=== PATIENT | female | born 1995 | race African-American/Black ===

== ENCOUNTER 2017-02-27 12:10 | Inpatient (IN) ==
[2017-02-27] MEDS ORDERED: NS 1,000 ML IV ONE ×2 (12:16→14:28)
[2017-02-27] MEDS ORDERED: DILAUDID IV ONE ×2 (12:16→14:25)
[2017-02-27] MEDS ORDERED: ZOFRAN IV ONE (12:16)
[2017-02-27] MEDS ORDERED: DILAUDID ONE (13:06)
--- NOTE | 2017-02-27 13:36 | PROVIDER DOCUMENTATION ---
This chart was entered by Macie Love Scribe, acting as scribe for Nigel Culp PA. HPI-General Adult <Sonny CotoGaby - Last Filed: 02/27/17 14:30> - General Source: patient - History of Present Illness -Gen Adult Nature of Presenting Problems: Pt is a 21 y/o F presents to the ED with back pain and chest pain. Pt states she has sickle cell disease. Pt states pain is like prior episodes. Pt states having a technical consultant in [place]. Pt states pain started 30 minutes ago. Location of Pain/Injury: reports: chest, back Pain Radiation: reports: no radiation Quality of Pain: reports: aching Severity: reports: mild Onset/Duration: reports: 1/2 hour ago Timing: reports: still present Context/Activities at Onset: reports: light activity Modifying Factors: improves with: nothing Associated Symptoms: reports: denies symptoms Similar Symptoms Previously?: Yes Recently seen or treated by another doctor?: No - Sickle Cell Pain Related Context Sickle Cell Pain Location: reports: chest, back Is this pain typical of prior episodes of crisis?: Yes <Nigel Culp - Last Filed: 02/27/17 17:20> - General Chief Complaint: Sickle Cell Crisis Stated Complaint: SICKLE CELL PAIN Time Seen by Provider: 02/27/17 12:15 Allergies/Adverse Reactions: Patient Allergies Allergy/AdvReac Type Severity Reaction Status Date / Time No Known Allergies Allergy Verified 02/27/17 13:22 Home Medications: Home Medication List Medication Instructions Recorded Confirmed Last Taken Type Cyanocobalamin [Cyanocobalamin] 1 dose IM DIRECTED 02/27/17 02/27/17 06:00 History 1 DOSE Fluticasone Propionate 1 dose TOP DIRECTED 02/27/17 02/27/17 02/27/17 06:00 History [Fluticasone Propionate] 1 DOSE Folic Acid [Folic Acid] 1 mg PO DAILY 02/27/17 02/27/17 02/27/17 06:00 History 1 MG Hydrocodone/Acetaminophen [[place] 1 dose PO BID 02/27/17 02/27/17 02/27/17 06:00 History 10-325 Tablet] 1 DOSE Hydroxyurea [Hydrea] 500 mg PO DAILY 02/27/17 02/27/17 02/27/17 06:00 History 500 MG Ketorolac Tromethamine [Ketorolac 10 mg PO DAILY 02/27/17 02/27/17 02/27/17 06: 00 History Tromethamine] 10 MG Review of Systems - Adult - REVIEW OF SYSTEMS - ADULT Constitutional: reports: no symptoms reported. denies: chills, fever Eyes: reports: no symptoms reported. denies: discharge, dry eyes Ears, Nose, Mouth & Throat: reports: no symptoms reported. denies: ear discharge, ear pain Cardiovascular: reports: chest pain. denies: heart murmur, irregular heart rate Respiratory: reports: no symptoms reported. denies: chronic cough, cough Gastrointestinal: reports: no symptoms reported. denies: abdominal pain, hematemesis Genitourinary: reports: no symptoms reported. denies: dysuria, discharge Musculoskeletal: reports: back pain. denies: joint pain, neck pain Integumentary: reports: no symptoms reported. denies: hives, hair loss Neurological: reports: no symptoms reported. denies: ataxia, dizziness/vertigo Psychiatric: reports: no symptoms reported. denies: anxiety, anti-depressant use Endocrine: reports: no symptoms reported Hematologic/Lymphatic: reports: no symptoms reported Allergic/Immunologic: reports: no symptoms reported All Other Systems: Reviewed and Negative <Nigel Culp - Last Filed: 02/27/17 17:20> Past History - Adult - PAST MEDICAL HISTORY-ADULT Review of Records: reports: Nursing Assessment Review, Medications Reviewed, Social history reviewed & non-contributory. Major Childhood Illnesses: reports: denies history Cardiovascular: reports: denies history Respiratory: reports: denies history Gastrointestinal: reports: denies history Obstetrical/Gynecological: reports: denies history Genitourinary: reports: denies history Musculoskeletal: reports: denies history Neurological: reports: denies history Psychiatric: reports: denies history Endocrine/Immune: reports: Sickle Cell disease Other Conditions: reports: denies history - PRIOR SURGERIES/PROCEDURES Surgical/Procedure History: reports: reviewed, not pertinent - IMMUNIZATION STATUS Childhood Immunizations: See Nurse Assessment Flu Vaccine: See Nurse Assessment - FAMILY HISTORY Family History: reviewed, not pertinent - SOCIAL HISTORY Smoking: denies Substance Use: denies Living Situation: family <Nigel Culp - Last Filed: 02/27/17 17:20> Physical Exam-General - PHYSICAL EXAM-ADULT Initial Vital Signs Reviewed: Yes - CONSTITUTIONAL General Appearance: appears well, alert, no apparent distress. negative: lethargic, slow to respond - EYES Eyes: PERRL/EOMI, pink conjunctivae. negative: pale conjunctivae, sunken eyes - HEAD, EARS, NOSE, MOUTH & THROAT HENMT: normocephalic/atraumatic, moist mucous membranes, normal ENT inspection. negative: angioedema, hearing deficit - NECK Neck: normal inspection. negative: lymphadenopathy, tender lateral - RESPIRATORY Respiratory: chest non-tender, lungs clear, normal breath sounds. negative: crackles, rhonchi - CARDIOVASCULAR Cardiovascular: normal peripheral pulses, regular rate, rhythm. negative: tachycardia, systolic murmur - GASTROINTESTINAL (ABDOMEN) Abdominal Exam: normal bowel sounds, non tender, soft. negative: guarding, rebound - LYMPHATIC Lymphatic: no adenopathy. negative: enlargement, streaking - MUSCULOSKELETAL Back Exam: normal inspection. negative: ecchymosis, swelling Extremity: normal range of motion, normal inspection. negative: deformity, erythema, swelling - SKIN Integumentary: normal color, normal turgor, warm/dry. negative: diaphoresis, ecchymosis, erythema, laceration(s), swelling - NEUROLOGIC Neurologic: grossly normal. negative: aphasia, facial droop - PSYCHIATRIC Psych/Mental Status: normal mood/affect, oriented x 3. negative: paranoid, tearful <Nigel Culp - Last Filed: 02/27/17 17:20> Progress - PLAN OF CARE/RESULTS Progress/Plan/Lab Results: Vital Signs - 8 hr 02/27/17 12:12 Temperature 98.3 F Pulse Rate 70 Respiratory Rate 16 Blood Pressure 92/61 O2 Sat by Pulse Oximetry 100 Bedside Urine ED: Urine Bedside Start: 02/27/17 12:16 Freq: ORDERED Status: Inactive Activity Type Activity Date Activity User E-Sign Co-Sign Detail Recorded Client Recorded Date Recorded By Edit Status 02/27/17 13:15 [id number] Active=>Inactive [id number] 02/27/17 13:15 [id number] Laboratory Results - last 24 hr 02/27/17 02/27/17 13:01 13:01 WBC 8.54 RBC 3.19 L Hgb 9.5 L Hct 27.1 L MCV 85.0 MCH 29.8 MCHC 35.1 RDW Std Deviation 17.0 H Plt Count 497 H MPV 11.3 H Immature Gran % (Auto) 0.0 Neut % (Auto) 44.2 Lymph % (Auto) 40.3 [place] % (Auto) 14.2 H Eos % (Auto) 0.6 Baso % (Auto) 0.7 Immature Gran # (Auto) 0.00 Neut # (Auto) 3.78 Lymph # (Auto) 3.44 H [place] # (Auto) 1.21 H Eos # (Auto) 0.05 Baso # (Auto) 0.06 Percent Retic 10.43 H Retic Hgb Equivalent 30.8 Sodium 138 Potassium 4.6 Chloride 99 Carbon Dioxide 26 Anion Gap 13 BUN 7 L Creatinine 0.5 Estimated GFR/1.73 m2 > 60 BUN/Creatinine Ratio 14 Glucose 76 Calculated Osmolality 272 Calcium 9.8 Total Bilirubin 2.48 H AST 45 H ALT 15 Alkaline Phosphatase 64 Total Protein 8.3 Albumin 4.8 Globulin 3.5 Albumin/Globulin Ratio 1.4 Orders Category Date Time Status ED: Urine Bedside ORDERED Care 02/27/17 12:16 Inactive Oxygen Therapy- ED Nursing DIRECTED Care 02/27/17 14:28 Active Saline Loc NOW Care 02/27/17 12:15 Active CHEST-2 VIEWS [RAD] Stat Exams 02/27/17 12:16 Ordered CBC WITH ELECTRONIC DIFF [HEME] Stat Lab 02/27/17 13:01 Completed COMPREHENSIVE METABOLIC PANEL [CHEM] Stat Lab 02/27/17 13:01 Completed TEST-URINE [PREG] Stat Lab 02/27/17 13:15 Ordered RETIC COUNT [HEME] Stat Lab 02/27/17 13:01 Completed URINALYSIS W/POSS RFLX CULT-1 [URINALYSIS] Stat Lab 02/27/17 13:12 Ordered 0.9% Sodium Chloride Inj [Ns] 1,000 ml Med 02/27/17 14:28 Active IV 125 mls/hr 0.9% Sodium Chloride Inj [Ns] 1,000 ml Med 02/27/17 12:16 Discontinued IV 999 mls/hr Hydromorphone [Dilaudid] Med 02/27/17 12:16 Discontinued 1 mg IV NOW ONE Hydromorphone [Dilaudid] Med 02/27/17 14:25 Discontinued 1 mg IV NOW ONE Hydromorphone [Dilaudid] Med 02/27/17 13:06 Discontinued 2 mg .ROUTE .STK-MED ONE Ondansetron [Zofran] Med 02/27/17 12:16 Discontinued 4 mg IV NOW ONE EKG [EKG] Stat Ther 02/27/17 12:15 Ordered Result Diagrams: 02/27/17 13:01 02/27/17 13:01 - CONSULTS/PCP/HOSPITALIST Notification #1 *Consult/PCP/Hospitalist*: [place] Time Discussed: 14:31 Consult Disposition: Will see in ED, Admit <Sonny Coto - Last Filed: 02/27/17 14:30> - PLAN OF CARE/RESULTS Progress/Plan/Lab Results: Vital Signs - 8 hr 02/27/17 12:12 Temperature 98.3 F Pulse Rate 70 Respiratory Rate 16 Blood Pressure 92/61 O2 Sat by Pulse Oximetry 100 Orders Category Date Time Status ED: Urine Bedside ORDERED Care 02/27/17 12:16 Active Saline Loc NOW Care 02/27/17 12:15 Active CHEST-2 VIEWS [RAD] Stat Exams 02/27/17 12:16 Ordered CBC WITH ELECTRONIC DIFF [HEME] Stat Lab 02/27/17 12:16 Uncollected COMPREHENSIVE METABOLIC PANEL [CHEM] Stat Lab 02/27/17 12:16 Uncollected RETIC COUNT [HEME] Stat Lab 02/27/17 12:16 Uncollected URINALYSIS W/POSS RFLX CULT-1 [URINALYSIS] Stat Lab 02/27/17 12:16 Uncollected 0.9% Sodium Chloride Inj [Ns] 1,000 ml Med 02/27/17 12:16 Active IV 999 mls/hr Hydromorphone [Dilaudid] Med 02/27/17 12:16 Discontinued 1 mg IV NOW ONE Ondansetron [Zofran] Med 02/27/17 12:16 Discontinued 4 mg IV NOW ONE EKG [EKG] Stat Ther 02/27/17 12:15 Ordered Result Diagrams: 02/27/17 13:01 02/27/17 13:01 - EKG 1 Time of EKG reading by physician:: 12:41 EKG Read and Signed by:: Tapan Johnson EKG Interpretation (*Must complete 3 of following elements*): Abnormal Rate: 69 Rhythm: normal sinus rhythm with sinus arrhythmia Comments: T wave abnormality, consider anterior ischemia - CHANGE OF SHIFT REPORT (ED Provider) Report Given and Care Transferred to:: EVITA Barlow Time of Transfer: 13:38 Items Pending: Labs <Nigel Culp - Last Filed: 02/27/17 17:20> Departure - Departure Date of Disposition Decision: 02/27/17 Time of Disposition Decision: 14:31 Certified Medical Emergency: Emergent - Critical Care Note This patient required my direct & personal management of CC.: No <Sonny Coto - Last Filed: 02/27/17 14:30> - Departure Date of Disposition Decision: 02/27/17 Time of Disposition Decision: 14:32 Certified Medical Emergency: Emergent - Critical Care Note This patient required my direct & personal management of CC.: No <Nigel Culp - Last Filed: 02/27/17 17:20> - Departure DIAGNOSIS: Sickle cell crisis Disposition: ADMITTED INPATIENT 09 Condition: Stable Attestation - Physician/ BERT Attestation Patient care was provided by Advanced Practice Provider:: Yes Advanced Practice Provider:: Nigel Culp Advanced Practice Provider documentation review:: The Mid-level provider documentation, treatment plan and medical decision making was reviewed by the physician who agrees with all treatment and medical decision making by the P. The physician spent face to face time with patient:: No Advanced Practice Provider documentation review:: Supervising physician onsite and consulted in the evaluation and care of this patient. The physician did not have a face to face encounter with the patient. - Physician/ BERT Attestation #2 Shift Change Time: 14:00 Patient care was provided by Advanced Practice Provider:: Yes Advanced Practice Provider:: Sonny Coto The physician spent face to face time with patient:: Yes (Dr. Johnson seen patient prior to admission.) Advanced Practice Provider documentation review:: Supervising physician onsite and consulted in the evaluation and care of this patient. The physician did not have a face to face encounter with the patient. <Sonny Coto - Last Filed: 02/27/17 14:30> - Physician/ BERT Attestation Patient care was provided by Advanced Practice Provider:: Yes Advanced Practice Provider documentation review:: The Mid-level provider documentation, treatment plan and medical decision making was reviewed by the physician who agrees with all treatment and medical decision making by the MLP. The physician spent face to face time with patient:: No Advanced Practice Provider documentation review:: Supervising physician onsite and consulted in the evaluation and care of this patient. The physician did not have a face to face encounter with the patient. - Physician/ BERT Attestation #2 Advanced Practice Provider documentation review:: Supervising physician onsite and consulted in the evaluation and care of this patient. The physician did not have a face to face encounter with the patient. <Nigel Culp - Last Filed: 02/27/17 17:20> This chart was documented by the indicated scribe, (Macie Love Scribe) and accurately reflects the services I performed and decisions made by Robbi garza Steven Wesley, PA, as attested by the provider's signature.
[2017-02-27 13:41] LABS: BASO% 0.7 % (0.0-0.8); EOS# 0.05 X1000 (0.0-0.7); EOS% 0.6 % (0.0-10.0); HEMATOCRIT 27.1 % (37.0-47.0); HEMOGLOBIN 9.5 g/dL (12.0-16.0); LYMPH# 3.44 X1000 (1.2-3.4); LYMPH% 40.3 % (20.5-51.1); MANUAL DIFF NEEDED? NO; MCH 29.8 PG (27-31); MCHC 35.1 g/dL (33-37); MONO# 1.21 X1000 (0.11-0.59); MONO% 14.2 % (1.7-9.3); MPV 11.3 FL (7.4-10.4); NEUT% 44.2 % (42.2-75.2); PLT 497 X1000 (130-400); RBC 3.19 XMIL (4.2-5.4); RETIC% 10.43 % (0.8-2.1); RETIC-HE 30.8 PG (28.2-36.6)
[2017-02-27 13:52] LABS: AGAP 13; ALBUMIN 4.8 g/dL (3.5-5.0); ALKALINE PHOSPHATASE 64 U/L (32-104); BUN 7 mg/dL (8-22); CALCIUM 9.8 mg/dL (8.8-10.2); CHLORIDE 99 mmol/L (98-107); COSMO 272; GOT 45 U/L (10-30); GPT 15 U/L (10-36); POTASSIUM 4.6 mmol/L (3.5-5.1); SODIUM 138 mmol/L (136-145); TCO2 26 mmol/L (25-35); TOTAL BILIRUBIN 2.48 mg/dL (0.20-1.00); TOTAL PROTEIN 8.3 g/dL (6.3-8.3)
--- NOTE | 2017-02-27 15:25 | Diag Imaging Result Doc PS360 ---
CHEST-2 VIEWS - 02/27/2017 INDICATION: sickle cell pain TECHNIQUE: COMPARISON: None FINDINGS: There is mild cardiomegaly. Pulmonary vascularity is distended. There is some ill-defined left lower lobe infiltrate. No pneumothorax or large effusion. There are characteristics central collapse deformities of the thoracic spine. IMPRESSION: 1. Left lower lobe infiltrate suggesting pneumonia. 2. Cardiomegaly and pulmonary vascular congestion. Electronically signed by Steven Burciaga 02/27/2017 3:23 PM
--- NOTE | 2017-02-27 17:19 | Diag Imaging Result Doc PS360 ---
CT THORAX W/O CONTRAST - 02/27/2017 INDICATION: ? PNA and pulmonary edema TECHNIQUE: A CT dose reduction protocol was used. COMPARISON: Chest x-ray earlier 02/27/2017. Chest CT 07/26/2015. FINDINGS: There is cardiomegaly and pulmonary vascular congestion. There are cholecystectomy clips. No mass or adenopathy. There is some trace infiltrate in both lung bases right greater than left, most notably in the right lower lobe. No pneumothorax or pleural effusion. Anemia is present. There are characteristic sickle cell changes of the bones. IMPRESSION: Cardiomegaly with pulmonary vascular congestion. Small bibasilar infiltrates suggesting mild bronchopneumonia. Right greater than left. Electronically signed by Steven Burciaga 02/27/2017 5:17 PM
[2017-02-27] MEDS: DILAUDID IV PRN ×2 (18:43→23:01)
[2017-02-27] MEDS: ZOFRAN IV PRN ×2 (18:44→21:11)
[2017-02-27] MEDS: LEVAQUIN PO SCH (21:11)
[2017-02-28 02:10] LABS: BILIRUBIN URINE NEGATIVE (NEGATIVE); BLOOD URINE NEGATIVE (NEGATIVE); COLOR YELLOW; GLUCOSE URINE NEGATIVE (NEGATIVE); LEUKOCYTES URINE NEGATIVE (NEGATIVE); NITRITE URINE NEGATIVE (NEGATIVE); PH URINE 5.5; PROTEIN URINE NEGATIVE (NEGATIVE); TURBIDITY URINE CLEAR (CLEAR); UR EPITHELIAL CELLS <10 /HPF (<10); URINE BACTERIA NEGATIVE /HPF; URINE CULTURE NEEDED? NO; URINE MICRO REVIEW NEEDED? NO; URINE RBC <10 /HPF (<10); URINE SOURCE CLEAN CATCH; URINE WBC <10 /HPF (<10); UROBILINOGEN URINE NORMAL (NORMAL)
--- NOTE | 2017-02-28 02:11 | HISTORY AND PHYSICAL ---
ONCOLOGIST: Everardo Sigala MD in [place], [place]. CHIEF COMPLAINT: Chest and back pain. HISTORY OF PRESENT ILLNESS: Mrs. Mazariegos is a 21-year-old female with a history of sickle cell disease, who presents with pain in her chest and back that began this morning. She reports pain in the midsternum and her shoulders blades. This pain, she reports , is similar to her typical sickle cell pain when she does have a crisis. She reports her last crisis was in October, at which time she was hospitalized at [facility]. She denies any shortness of breath or cough. No fever or chills. No lower extremity edema. No orthopnea. She has no exertional angina. No nausea, vomiting, or diarrhea. When she got to the ER, she had labs and diagnostics done. She is noted to be anemic with a retic count of 10.43. She also has a T- bilirubin of 2.48 and an AST of 45; otherwise, labs are unremarkable. Chest x-ray was reported as a left lower lobe infiltrate, suggesting pneumonia, cardiomegaly, and pulmonary vascular congestion. The patient is now going to be admitted for further treatment and evaluation. PAST MEDICAL HISTORY: 1. Sickle cell disease. 2. Folic acid and vitamin B12 deficiency. 3. Asthma. SURGICAL HISTORY: She has had bilateral hip replacements, cholecystectomy, and tonsillectomy. SOCIAL HISTORY: She lives in [place]. Recently moved from [place]. She is not . She has no children. She does not work. FAMILY HISTORY: Noncontributory. REVIEW OF SYSTEMS: Fourteen-point review of systems obtained and found to be negative, with the exception of the HPI. HOME MEDICATIONS: Vitamin B12 injections as directed, fluticasone as directed, folic acid 1 mg daily, [place] b.i.d., hydroxyurea 500 mg daily, ketorolac 10 mg daily. ALLERGIES: No known drug allergies. PHYSICAL EXAMINATION: VITAL SIGNS: Blood pressure is 90/55, heart rate 67, respiratory rate 16, O2 saturation 100% on room air. Temperature is 98.4 degrees. GENERAL: This is a well-developed, well-nourished, female, lying in hospital bed in no acute distress. NEUROLOGIC: She is awake, alert, oriented. Follows commands without focal deficits. HEENT: Head is atraumatic, normocephalic. Her pupils are equal, round, reactive to light. Oral mucosa is moist. Trachea is midline. No jugular venous distention. No carotid bruits. CHEST: Clear to auscultation bilaterally. Some midsternal tenderness to palpation. GASTROINTESTINAL: Soft, nondistended, nontender. Bowel sounds are positive. EXTREMITIES: No edema, clubbing, or cyanosis. Pulses palpable bilaterally. DIAGNOSTIC DATA: Chest x-ray, please see HPI. EKG shows normal sinus rhythm with nonspecific changes in the inferior and lateral leads. WBC 8.54, hemoglobin 9.5, hematocrit 27.1, platelet count 497,000. Sodium 138, potassium 4.6, chloride 99, CO2 26, anion gap 13. BUN 7, creatinine 0.5, glucose 76. Calcium 9.8, T-bilirubin 2.48. AST 45, ALT 15, alkaline phosphatase 64, protein 8.3. Free T4 is 1.16. Serum test is negative. ASSESSMENT/PLAN: 1. Vaso-occlusive sickle cell crisis: We will continue with aggressive fluid resuscitation, IV opioids, and oxygen. While the patient does not have any clear signs of pneumonia, her chest x-ray is read as pneumonia so we are going to check a chest CT without contrast. We will hold off on antibiotics for now, as she is afebrile. There is no leukocytosis or tachycardia. 2. Elevated liver functions: The patient reports that she has had a liver biopsy in the past. She has no known liver disease. We will monitor this. 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 She has had a liver biopsy in the past, although the results are unknown. We will try to get the results of that and other records from Dr. Sigala office. 3. Asthma: We will make sure she is on p.r.n. breathing treatments. Her lung sounds are clear. She is not in any respiratory distress. 4. Sickle cell anemia: Continue her B12 and folate. Check iron studies. Heme- Onc has been consulted. 5. Deep vein thrombosis prophylaxis with Lovenox. Further recommendations to follow. Patient seen and examined by me face to face, lab work, vitals signs and images were reviewed, on my physical exam she has pain to palpation at the level of her chest, she will be hydrated, she has her Hem/Onc at [place], but probably we will get one of our Nurses' Association Counselor on board , I agree with the WELD INSPECTOR' s assessment and plan, Miguel Linton MD Dictated by EVITA Smith for Miguel Junior MD cc: EVITA Smith MD John M. Waples, MD [facility]
[2017-02-28 02:16] LABS: SP GRAVITY URINE 1.009
--- NOTE | 2017-02-28 03:48 | CONSULTATION ---
DATE OF CONSULTATION: 02/27/2017 REASON FOR CONSULTATION: The patient was seen in consultation at request of Dr. Weinberg for sickle cell anemia. HISTORY OF PRESENT ILLNESS: Ms. Mazariegos is a 21-year-old woman who is well-known to Dr. Sigala for a long standing history of sickle cell anemia. She generally does not come into the hospital more than twice a year, but developed chest pain and back pain that was not controlled with [place] at home and presented to the emergency room for evaluation of the same. She describes the pain as 9/10 and not relieved by [place]. She denies any fevers, chills, cough, or shortness of breath. She does have underlying history of asthma. PAST MEDICAL HISTORY: Significant for sickle cell disease. PAST SURGICAL HISTORY: Negative. ALLERGIES: No known drug allergies. MEDICATIONS: Reviewed, per the chart. FAMILY MEDICAL HISTORY: Positive for sickle cell. Otherwise, negative. SOCIAL HISTORY: No tobacco, alcohol, or illicit drug use. REVIEW OF SYSTEMS: Positive as per history of present illness; otherwise, negative. PHYSICAL EXAMINATION: Vital Signs: Temperature 98.4, pulse 67, respiratory rate 16, blood pressure 90/55, O2 saturation 100% on room air. General: This is a thin, chronically ill- appearing, woman in no acute distress. She is unaccompanied in the hospital room at the time of consultation. Eyes: Sclerae anicteric. Cardiovascular: Regular rate and rhythm. Normal S1, S2. No murmurs, rubs, or gallops. Pulmonary: Lungs clear auscultation bilaterally without wheezes, rales, or rhonchi. Gastrointestinal: Abdomen is soft, nontender, nondistended with normoactive bowel sounds. Extremities: No clubbing, cyanosis, or edema. She has 2+ pulses x4. Neurologic: The patient is alert, oriented x3. No focal deficits. During our consultation she began to become sleepy from her recent dosing of pain medication. Otherwise, she is able to follow commands and answer questions appropriately. LABORATORY DATA: At the time of consultation white count 8.5, hemoglobin 9.5, platelet count 497,000. MCV 85.0, retic is 10.4%. Sodium 138, potassium 4.6, chloride 99, bicarb 26, BUN 7, creatinine 0.5. Glucose 76, calcium 9.8, total bilirubin 2.48. AST 45, ALT 15, alkaline phosphatase 64. CK 42, albumin 4.8. Serum test is negative. IMAGING: Chest x-ray 02/27/2017 shows a left lower lobe infiltrate suggestive of pneumonia. Also noted is cardiomegaly and pulmonary congestion. Chest CT on 02/27/2017 shows cardiomegaly and pulmonary congestion with some bibasilar infiltrates suggesting mild bronchopneumonia on right greater than left. ASSESSMENT AND PLAN: 1. Sickle cell anemia: The patient appears to typically be well controlled and is on Hydrea at home. She will continue the same during this hospitalization. We will also ensure that she is on folic acid supplementation as well. She will followup with Dr. Sigala upon discharge. 2. Pain crisis: She is receiving IV Dilaudid as needed at this time. Her pain appears well controlled during consultation. We will reassess during her hospital stay. She is on O2 at 2 L to improve oxygenation. Her oxygen saturations appear adequate. Continue to monitor during her hospital stay. 3. Pneumonia. She is not currently on antibiotics, so I will start empiric treatment with antibiotics during this hospitalization given her abnormal immune system and her increased risks for sickle chest with lung infiltrates and pain crisis. O2 as above. cc: MD Miguel Duckworth MD
[2017-02-28] MEDS: DILAUDID IV PRN ×5 (04:00→22:01)
[2017-02-28] MEDS: ZOFRAN IV PRN ×4 (04:00→17:46)
[2017-02-28 06:25] LABS: HEMATOCRIT 25.6 % (37.0-47.0); MCH 29.6 PG (27-31); MCHC 35.2 g/dL (33-37); MCV 84.2 FL (81-99); RBC 3.04 XMIL (4.2-5.4); RETIC% 9.92 % (0.8-2.1); RETIC-HE 28.1 PG (28.2-36.6)
[2017-02-28 06:58] LABS: AGAP 14; BUN 5 mg/dL (8-22); CALCIUM 9.7 mg/dL (8.8-10.2); CHLORIDE 101 mmol/L (98-107); COSMO 271; IRON SATURATION 52 %; POTASSIUM 4.3 mmol/L (3.5-5.1); SODIUM 138 mmol/L (136-145); TCO2 23 mmol/L (25-35); TIBC 175 ug/dL; TOTAL IRON 91 ug/dL (49-151); UNBOUND IRON 84 ug/dL (112-346)
[2017-02-28] MEDS: HYDREA PO SCH ×2 (07:53→13:13)
[2017-02-28] MEDS: FOLIC ACID PO SCH ×2 (07:53→13:11)
[2017-02-28] MEDS: NS 1,000 ML IV SCH ×3 (07:53→22:02)
[2017-02-28] MEDS: LEVAQUIN PO SCH ×2 (07:54→13:12)
[2017-02-28] MEDS: LOVENOX SUBQ SCH ×3 (07:54→22:02)
[2017-02-28] MEDS ORDERED: LEVAQUIN 500 MG/D5W 500 MG/100 ML IVPB IV SCH (18:45)
--- NOTE | 2017-02-28 19:30 | PROGRESS NOTE ---
DATE: 02/28/2017 SUBJECTIVE: The patient is doing well. She indicates that she has adequate pain control. OBJECTIVE: Vital signs are as follows: Temperature is 98.6 degrees with a pulse of 68, respirations 20, blood pressure is 86/54, oxygen saturation 96%. HEENT: Atraumatic, normocephalic. Cardiovascular System: S1, S2. Respiratory system: Has evidence of _?cta Abdomen is soft, nontender. No masses felt. Extremities: No evidence of edema. Central nervous system: No obvious focal deficit noted. LABS: As follows: WBC 9.21, hematocrit 25.6 with a platelet count of 432,000, folate level is 4.6. Sodium 138, potassium 4.3, chloride 101, bicarb 23, BUN 5, creatinine 0.5. AST is 45, ALT is 15. Total bilirubin 2.48, alkaline phosphatase 64. CT scan of the chest done on 02/27/2017 shows evidence of cardiomegaly with pulmonary vascular congestion. There are small bibasilar infiltrates suggesting mild bronchopneumonia, right greater than left. ASSESSMENT AND PLAN: 1. Sickle cell crisis. Maintain patient on intravenous fluids and optimize pain control. Give oxygen. Follow up on hemoglobin and hematocrit and transfuse packed red blood cells as needed. Her latest hematocrit was 25.6 and I will transfuse her with 1 unit of packed red blood cells. 2. Abnormal liver function tests. Most likely secondary to iron overload from recurrent blood transfusions. Will check a serum ferritin level. We will also check hepatitis panel and DORINA level and get an abdominal ultrasound. 3. Bronchial asthma. Stable. The patient will need nebulizer treatment as needed. 4. Folic acid deficiency. Start patient on folic acid at 1 mg p.o. daily. 5. Abnormal chest x-ray. The patient's current x-ray shows evidence of pulmonary vascular congestion as well as a possible bronchopneumonia. Will cut down on her fluid tightly and obtain sputum culture, two sets of blood cultures and start on empiric treatment for possible bronchopneumonia. cc: MD KEITH Levy
[2017-03-01] MEDS: DILAUDID IV PRN ×5 (00:59→13:14)
[2017-03-01] MEDS: ZOFRAN IV PRN (04:18)
[2017-03-01] MEDS: NS 1,000 ML IV SCH ×2 (07:02→08:47)
[2017-03-01 07:33] VITALS: BP 80/42
[2017-03-01] MEDS: LOVENOX SUBQ SCH (08:27)
[2017-03-01] MEDS ORDERED: TYLENOL PO PRN (08:45)
[2017-03-01] MEDS: FOLIC ACID PO SCH (08:47)
[2017-03-01] MEDS: HYDREA PO SCH (08:47)
[2017-03-01] MEDS ORDERED: LEVAQUIN 750 MG/D5W 750 MG/150 ML IVPB IV SCH (11:45)
[2017-03-01] MEDS ORDERED: HYDREA PO ONE (13:12)
[2017-03-01 15:07] LABS: AGAP 12; BUN 3 mg/dL (8-22); CALCIUM 8.7 mg/dL (8.8-10.2); CHLORIDE 102 mmol/L (98-107); COSMO 266; POTASSIUM 4.5 mmol/L (3.5-5.1); SODIUM 135 mmol/L (136-145); TCO2 21 mmol/L (25-35)
[2017-03-01 15:11] LABS: BASO% 0.5 % (0.0-0.8); EOS# 0.05 X1000 (0.0-0.7); EOS% 0.5 % (0.0-10.0); HEMATOCRIT 23.8 % (37.0-47.0); HEMOGLOBIN 8.6 g/dL (12.0-16.0); IMM GRAN# 0.04 X1000 (0.0-0.04); IMM GRAN% 0.4 % (0.0-0.5); LYMPH# 3.52 X1000 (1.2-3.4); LYMPH% 34.9 % (20.5-51.1); MANUAL DIFF NEEDED? YES; MCHC 36.1 g/dL (33-37); MCV 82.9 FL (81-99); MONO# 1.27 X1000 (0.11-0.59); MONO% 12.6 % (1.7-9.3); MPV 11.7 FL (7.4-10.4); NEUT% 51.1 % (42.2-75.2); PLT 449 X1000 (130-400); RBC 2.87 XMIL (4.2-5.4)
[2017-03-01 15:12] LABS: RETIC% 15.38 % (0.8-2.1); RETIC-HE 26.6 PG (28.2-36.6)
[2017-03-01 15:28] LABS: BASO 1 % (0-1); LYMPHS 41 % (21-51); MONO 6 % (1-9)
[2017-03-01 15:29] LABS: TARGET CELLS OCCASIONAL
[2017-03-01 15:35] LABS: HYPOCHROM 1+
--- NOTE | 2017-03-02 05:48 | DISCHARGE SUMMARY ---
ADMISSION DATE: 02/27/2017 DISCHARGE DATE: 03/01/2017 CONSULTATIONS: Dr. Lori Lopez with hematology/oncology. PERTINENT PROCEDURES: Chest CT showed cardiomegaly with pulmonary vascular congestion, small bibasilar infiltrates suggesting mild bronchopneumonia, right greater than left. DISCHARGE DIAGNOSES: 1. Sickle cell crisis, resolved. 2. Abnormal liver function tests secondary to iron overload from recurrent blood transfusions. 3. Bronchial asthma, stable. 4. Folic acid deficiency. Continue folic acid. 5. Pulmonary vascular congestion and possible bronchopneumonia on chest x-ray. The patient's intravenous fluids were decreased. The patient has been afebrile since admission. No white count. Started on empiric antibiotics and will be discharged on oral Levaquin. HOSPITAL COURSE: Ms. Mazariegos is a 21-year-old, -Citizen Of [place] female with a history of sickle cell who presented with pain in her chest and back that began on the morning of her admission. She reports the pain was midsternal and in her shoulder blades, similar to her typical sickle cell pain when she has a crisis. Her last crisis was in October at which time she was hospitalized at [facility]. She denied any shortness of breath or cough. No fever or chills. No lower extremity edema. No orthopnea. She has no exertional angina. No nausea, vomiting, or diarrhea. When she got to the ED, she had labs and diagnostics done. She was noted to be anemic with a reticulocyte count of 10.43. She had a total bilirubin of 2.48 and AST of 45. Other labs were unremarkable. Chest x-ray showed a left lower lobe infiltrate suggesting pneumonia, cardiomegaly, and pulmonary vascular congestion. She was admitted and aggressively fluid resuscitated, started on IV opiates and supplemental O2. She had no clear signs of pneumonia. They did do a CT of the chest and held off on antibiotics. She did not have any leukocytosis or any other signs of pneumonia, and was placed on p.r.n. breathing treatments. Her lung sounds were clear and she was in no respiratory distress. Her chest x-ray did show cardiomegaly with pulmonary vascular congestion and small bibasilar infiltrates suggesting mild bronchopneumonia, right greater than left. She was initiated on empiric antibiotics. Dr. Lopez agreed to continue her Hydrea as well as her folic acid. She will follow up with Dr. Sigala upon discharge and continue with her pain control. She has had adequate pain control throughout her admission. Dr. Weinberg feels that she is appropriate for discharge home today. PHYSICAL EXAMINATION: Vital Signs: Temperature is 98.5 degrees, heart rate 63 , respirations 20. Blood pressure throughout her admission has been 80s-90s/40s-50s. She has been asymptomatic. O2 saturation is 97% on room air. DISCHARGE DIET: Healthy heart. DISCHARGE MEDICATIONS: 1. Vitamin B12 1000 mcg IM as directed. 2. Fluticasone propionate 1 dose as directed. 3. Folic acid 1 mg p.o. daily. 4. [place] 10/325 one each p.o. b.i.d. 5. Hydrea 500 mg p.o. daily. 6. Toradol 10 mg p.o. daily. 7. Levaquin 750 mg p.o. daily for the next 4 days. FOLLOWUP: Ms. Mazariegos is being discharged home. She will follow up with Dr. Sigala. Take all her antibiotics as prescribed and she can return to the ED for any worsening of symptoms. Time discharging this patient: 35 minutes Dictated by EVITA Cardoza for Miguel Junior MD cc: Miguel Junior MD [facility]
[2017-03-02] MEDS ORDERED: LEVAQUIN PO SCH (09:00)
[2017-03-02] MEDS ORDERED: HYDREA PO SCH (09:00)
--- NOTE | 2017-03-02 09:15 | PROGRESS NOTE ---
DATE: 03/01/2017 SUBJECTIVE: Ms. Mazariegos is lying in the hospital bed. She reports she is having some mild chest pain, but overall is doing relatively well. VITAL SIGNS: Temperature 98.5, heart rate 63, respirations 20, blood pressure 80/42, O2 saturation 90% on room air. LABS: No new labs for today at this time. PHYSICAL EXAMINATION: Cardiovascular: S1, S2 heard. No murmurs, gallops, rubs appreciated. Respiratory: Chest clear to auscultation bilaterally. Normal respiratory effort. Gastrointestinal: Abdomen is soft, nontender, nondistended. Positive bowel sounds. Extremities: No edema noted. ASSESSMENT AND PLAN: 1. Sickle cell pain crisis. The patient has been receiving IV Dilaudid and reports her pain is well managed. The patient and mother would like to be discharged from the hospital at this time with follow up with Dr. Everardo Sigala as an outpatient. 2. Sickle cell anemia. The patient is well controlled with Hydrea. She has requested that she get her 1500 mg dose that she usually gets. We will go ahead and make sure she gets the rest of her Hydrea before leaving the hospital. She will also continue folic acid. 3. Probable pneumonia. The patient's mother feels that this is actually scarring that has previously been seen on x-ray. Patient did get a dose of IV antibiotics and blood cultures were drawn. She will need to follow up with Dr. Sigala. She is going to get oral Levaquin to take at home. Dictated by RENEE Contreras for Lori Lopez MD cc: Lori Lopez MD I have seen and examined the patient and the above note reflects my assessment and plan Lori PARKER
== END 2017-03-01 16:55 | disposition home or self-care (01) ==
LOC: ED 12:10 → 4N 14:54 → SUATTDRO 14:54
PROVIDERS: ATTEND Internal Medicine